=== PATIENT | male | born 1995 | race Two or more races ===

== ENCOUNTER 2019-03-02 05:14 | Inpatient (IN) | payer OTHER ==
[~2019-03-02] VITALS: Ht 172.7 cm; Wt 83.9 kg
--- NOTE | 2019-03-02 05:25 | NUR ---
SE RECIBE PTE LA CUAL PRESENTA DOLOR ABD EN RLQ EL CUAL ES PUNZANTE DESDE HACE UNAS HORAS. PTE INDICA QUE DOLOR NO LO PUEDE TOLERAR DARRELL POR LA QUE LLEGA A ER.
--- NOTE | 2019-03-02 06:53 | NUR ---
MR. PIERCE ORIENTA PACIENTE SOBRE TRATAMIENTO MEDICO EL CUAL REFIERE ENTENDER, SE REALIZA MUESTRA DE AUTUMN DE FORMA ASEPTICA Y SE ADMINISTRA MEDICAMENTO MERCED ORDEN MEDICA. PACIENTE TOLERA INITERVENCION DEL RN. SE ENTREGA CONTRASTE GASTRO V. SE ORIENTA ALISTAIR NABILA. PACIENTE TOLERA INTERVENCION DEL RN.
--- NOTE | 2019-03-02 07:44 | NUR ---
SE RECIBE DE TURNO ANTERIOR. PACIENTE MASCULINO. ALERTA Y ORIENTADO EN ZEB ESFERAS. SE OBSERVA CON BUEN PATRON RESPIRATORIO. PIEL TIBIA AL TACTO. CANALIZACION PATENTE, CHRIS DE EDEMA Y/O ENROJECIMIENTO RECIBIENDO 0.9%NSS @150 ML/HR. PACIENTE EN ESPERA DE TERMINAR CONTRASTE PARA CT SCAN.
[2019-03-03] MEDS ORDERED: PERCOCET 5-3251 EACH PO (11:09)
== END 2019-03-03 11:44 | disposition home or self-care (01) | DRG 343 ==
LOC: ER 05:14 → SEC-K 14:55 → O/R 14:55 → SURH 18:14
PROVIDERS: ADMIT Surgery
PROC: BW21ZZZ Computerized Tomography (CT Scan) of Abdomen and Pelvis (ICD-10-PCS; 2019-03-02)
PROC: 0DTJ4ZZ Resection of Appendix, Percutaneous Endoscopic Approach (ICD-10-PCS; principal; 2019-03-02 16:00)
DX: K35.890 Other acute appendicitis without perforation or gangrene (principal)

== ENCOUNTER 2020-05-10 11:20 | Outpatient (CLI) | payer OTHER ==
[~2020-05-10 11:20] MED LIST: PERCOCET 5-3251 EACH PO
== END 2020-05-10 11:24 | disposition home or self-care (01) ==
LOC: RAD 11:20
PROVIDERS: ATTEND Chiropractor
DX: M79.641 Pain in right hand (principal)